=== PATIENT | male | born 1990 | race Caucasian/White ===

== ENCOUNTER 2017-01-13 05:24 | Inpatient (IN) | payer OTHER ==
[2017-01-12 10:08] VITALS: BMI 28.9
[2017-01-13] VITALS (51 sets, daily range): BP systolic 116–148; BP diastolic 61–100; PULSE 74–99; RESP 10–24; Ht 180.3 cm; Wt 89.3 kg
[~2017-01-13] VITALS: Ht 180.3 cm; Wt 89.3 kg
[2017-01-13] MEDS ORDERED: CEFAZOLIN 2 GM/50 ML (PMX) 50 ML IVPB ONE (06:00)
--- NOTE | 2017-01-13 06:46 | HPN ---
Date/Time of Note Date/Time of Note DATE: 01/13/17 TIME: 06:45 Interval H&P Admission Note Pt. seen H&P reviewed: No system changes SHAWN HOGAN MD Jan 13, 2017 06:46
[2017-01-13] MEDS ORDERED: ROCURONIUM 50 MG INJ ONE (06:52)
[2017-01-13] MEDS ORDERED: SUCCINYLCHOLINE CHLORIDE 100 MG/5 ML SYG IV ONE (06:52)
[2017-01-13] MEDS ORDERED: MIDAZOLAM 1 MG/ML 2 ML INJ ONE (06:52)
[2017-01-13] MEDS ORDERED: PROPOFOL 20 ML ONE (06:52)
[2017-01-13] MEDS ORDERED: LIDOCAINE 1% (MDV) 20 ML INJ ONE (06:52)
[2017-01-13] MEDS ORDERED: DEXAMETHASONE 4 MG/ML 1 ML INJ ONE (07:15)
[2017-01-13] MEDS ORDERED: ONDANSETRON 4 MG INJ ONE ×2 (07:15→09:01)
[2017-01-13] MEDS ORDERED: FAMOTIDINE 20 MG INJ ONE (07:15)
[2017-01-13] MEDS ORDERED: LABETALOL HCL 20MG INJ ONE (07:28)
[2017-01-13] MEDS ORDERED: BUPIVACAINE 0.25% (MPF) 10 ML 10 ML VIAL ONE (07:30)
[2017-01-13] MEDS ORDERED: POLYMYXIN/BACITRACIN 1L IRRIG ONE (07:30)
[2017-01-13] MEDS ORDERED: SUGAMMADEX SODIUM 200 MG/2 ML VIAL IV ONE (08:04)
[2017-01-13] MEDS ORDERED: HYDROmorphONE 0.2 MG/ML PCA ONE (08:44)
--- NOTE | 2017-01-13 08:44 | SIPON ---
Date/Time of Note Date/Time of Note DATE: 01/13/17 TIME: 08:36 Operative Report Preoperative Diagnosis Herniated disc L5-S1 on the right Postoperative Diagnosis Same Operation/Procedure Performed Right hemilaminotomy L5 Micro- discectomy L5-S1 on the right Medial facetectomy and foraminotomy L5-S1 on the right Cosmetic wound closure 2.6 cm Lateral localizing lumbar radiographs (2) Surgeon see signature line veterinary technician assistant Jasmin Alvares SHEET METAL SUPERVISOR Anesthesia: general Estimated blood loss: 10 - 50 ml's Transfusion Required none Specimen HNP L5-S1 right Grafts/Implants none Complications none SHAWN HOGAN MD Jan 13, 2017 08:44
[2017-01-13] MEDS ORDERED: DIAZEPAM 5 MG/ML SYG IM PRN (09:00)
[2017-01-13] MEDS ORDERED: DIAZEPAM 5 MG TAB PO PRN (09:00)
[2017-01-13] MEDS ORDERED: MEPERIDINE 25 MG INJ IV PRN (09:00)
[2017-01-13] MEDS ORDERED: ZOLPIDEM 5 MG TAB PO PRN (09:00)
[2017-01-13] MEDS ORDERED: ACETAMINOPHEN 325 MG TAB PO PRN (09:00)
[2017-01-13] MEDS ORDERED: TRIMETHOBENZAMIDE 100 MG/ML VIAL IM PRN (09:00)
[2017-01-13] MEDS ORDERED: AL HYDROX/MG HYDROX/SIMETH 30 ML CUP PO PRN (09:00)
[2017-01-13] MEDS ORDERED: ONDANSETRON 4 MG INJ IV PRN (09:00)
[2017-01-13] MEDS ORDERED: HYDROmorphONE (0.2 MG/ML) 10ML SYG IV PRN ×2 (09:00)
[2017-01-13] MEDS ORDERED: NACL 0.9% 3 ML SYG IV SCH (09:00)
[2017-01-13] MEDS ORDERED: DIPHENHYDRAMINE 50 MG INJ IV PRN (09:00)
[2017-01-13] MEDS ORDERED: BETHANECHOL 25 MG TAB PO PRN (09:00)
[2017-01-13] MEDS ORDERED: LORAZEPAM 2 MG INJ IV PRN (09:00)
[2017-01-13] MEDS ORDERED: PROCHLORPERAZINE 10 MG TAB PO PRN (09:00)
[2017-01-13] MEDS ORDERED: HYDROCODONE/APAP (5/325) TAB PO PRN (09:00)
[2017-01-13] MEDS ORDERED: DIPHENHYDRAMINE 50 MG CAP PO PRN (09:00)
[2017-01-13] MEDS ORDERED: NALOXONE (0.4 MG/ML) INJ IV PRN (09:00)
[2017-01-13] MEDS ORDERED: HYDROmorphONE (0.2 MG/ML) 10ML SYG IV ONE (09:01)
[2017-01-13] MEDS: ONDANSETRON 4 MG INJ IV PRN ×3 (09:08→16:05)
[2017-01-13] MEDS: HYDROmorphONE 0.2 MG/ML PCA IV SCH ×2 (09:13→17:41)
[2017-01-13] MEDS: CEFAZOLIN 1 GM/50 ML (PMX) 50 ML IVPB SCH ×3 (12:00→23:46)
--- NOTE | 2017-01-13 12:28 | RADRPT ---
PROCEDURE: XR Lumbar Spine. CLINICAL INDICATION: Lower back Pain. L5-S1 microdiskectomy TECHNIQUE: An AP view of the lumbar spine was obtained. COMPARISON: No prior studies are available for comparison. FINDINGS: Alignment is anatomic. No fracture or dislocation. Diffuse degenerative disk disease is noted. Po stsurgical changes are present. There are probes directed at the L4-5 and L5-S1 levels IMPRESSION: Intraoperative localization film. Anatomic alignment. RPTAT: QQ .Joslyn Gomez MD, MD Date Time Electronically viewed and signed by .Joslyn Gomez MD, MD on 01/13/2017 12:28 .F/
--- NOTE | 2017-01-13 12:40 | RADRPT ---
PROCEDURE: XR Lumbar Spine. CLINICAL INDICATION: Lower back Pain. L5-S1 microdiskectomy TECHNIQUE: An AP view of the lumbar spine was obtained. COMPARISON: Intraoperative localization film from the same day FINDINGS: Alignment is anatomic. No fracture or dislocation. Diffuse degenerative disk disease is noted. Po stsurgical changes are present. There are skin spreaders at the L5-S1 level IMPRESSION: Intraoperative localization film. Anatomic alignment. RPTAT: QQ .Joslyn Gomez MD, MD Date Time Electronically viewed and signed by .Joslyn Gomez MD, on 01/13/2017 12:40 .F/
--- NOTE | 2017-01-13 13:53 | OPR ---
DATE OF OPERATION: 01/13/2017 PREOPERATIVE DIAGNOSIS: Herniated disk, L5, S1, on the right. POSTOPERATIVE DIAGNOSIS: Herniated disk, L5, S1, on the right. OPERATION PERFORMED: 1. Right hemilaminotomy, L5. 2. Microdiskectomy, L5-S1, on the right. 3. Medial facetectomy foraminotomy, L5-S1, on the right. 4. Cosmetic wound closure (2.6 cm). 5. Lateral localized lumbar radiographs (2). 6. Intraoperative nerve monitoring (1 hour). SURGEON: Dr. Damian. VISUAL SPECIALIST: KAYLA Brown. ANESTHESIA: General endotracheal by Dr. Casas. ESTIMATED BLOOD LOSS: 15 cc-none replaced. DRAINS: Two medium Hemovac drains employed. COMPLICATIONS: No complications. PERTINENT HISTORY AND PHYSICAL: This is a 26-year-old male with persistent back and right leg pain, which has been unrelieved by conservative management following an injury to his back, which occurred in the course of his employment on May 07, 2016. He has had appropriate conservativecare since that time. He has remained symptomatic. He has undergone a number of diagnostic studies including an MRI of lumbar spine, which demonstrated herniation of the L5-S1 disk on the right. Treatment options were discussed with the patient. He elected to surgery. OPERATIVE FINDINGS AT SURGERY: A [id number] right paracentral herniation of the L5-S1 disk was confirmed. The baseline intraoperative nerve monitor revealed a decrease in the right S1 potential of 30 percent and the right L5 potential of 30 percent. These both returned to normal at the completion of the surgery. OPERATIVE PROCEDURE: With the patient in supine position, after satisfactory induction of general trach anesthesia by Dr. Casas, the patient was turned to the prone kneeling position onto the [place] frame. All pressure points carefully padded. The back was prepped and draped in usual sterile fashion. Athrombic pumps were applied to the legs below the knees and venous stasis during and after the procedure. Two spinal needles placed next to what was felt to be the L5 and S1 spinous processes, lateral roentgenogram was taken, which confirmed anatomical localization. A 2.6 cm incision was then carried out in the midline over the spinous process of L5 after the skin was infiltrated with 0.25 percent Marcaine without epinephrine for postoperative analgesia. Superficial retractors were placed and hemostasis secured with electrocautery. Throughout the procedure copious amounts of antibacterial irrigating solution used to periodically irrigate the wound. The fascia was incised in the midline with a hot knife and a unilateral subperiosteal dissection carried out at L5-S1 on the right. Deep retractors were placed and deep hemostasis secured with electrocautery. A 2nd intraoperative radiograph was taken where the deep tract was felt to be the L5-S1 disk space and this was confirmed with a 2nd x-ray. A right hemilaminotomy was then carried out using a Leksell rongeur, Kerrison punches and curettes. Ligamentum flavum was excised with sharp dissection. The operating microscope then moved into place. A medial facetectomy and foraminotomy were accomplished using small hand osteotome and mallet, Kerrison punches and curettes. The S1 root was then mobilized medially and protected with a D'Alice nerve root retractor using microdissection technique. This revealed a herniation of the L5-S1 disk on the right. A 15 blade knife used to cut a rectangular annular window in the annulus and posterior longitudinal ligament, and multiple degenerative disk fragments were harvested with a pituitary rongeur and sent to the laboratory for pathologic study. Additional fragments were harvested using Heriberto curettes. A thorough search of the floor of canal was made with an arthroscopic probe, and no additional fragments were encountered. The epidural hemostasis was secured with bipolar electrocautery on a low setting. The anesthesiologist asked to perform a Valsalva maneuver, 40 mmHg, no spinal fluid leakage was noted. The wound was then closed in layers over 2 medium Hemovac drains, one below the fascia, one above the fascia using #1 Vicryl [id number]-[id number] approximating suture in the deep parietal musculature and deep fascia of the back. 2-0 Vicryl subcutaneous approximating sutures in the subcu tissue and a 4-0 Vicryl subcuticular cosmetic closing suture on the skin. Dermabond and sterile compressive dressings were applied. The patient having tolerated procedure well was then turned in the supine position onto his bed and extubated by Dr. Casas. He was transported to recovery room in satisfactory condition. At the conclusion of procedure, sponge, instrument, needle counts were all correct. My grants and contracts assistant was required to retract nerves, suction blood, and assist in the exposure of the neural elements. These tasks can only be performed by licensed personnel in accordance with hospital bylaws and [place] law. Throughout the procedure, neuromonitoring was carried out by [employer] including EMG, SSEP and MEP monitoring of the L3, L4, L5 and S1 nerve roots bilaterally along with spinal cord potentials. These were interpreted by a neurologist employed by [employer]. Dictated By: Juan Ramon Damian MD /evangelista/montse /Document#: [id number] CC: DO DAFNE Silvestre
[2017-01-13] MEDS: DEXTROSE 5%-0.45% NACL 1,000 ML IV SCH ×2 (15:27→18:33)
[2017-01-13] MEDS: CEPASTAT LOZENGE MT PRN ×2 (15:27→21:53)
--- NOTE | 2017-01-13 17:54 | PN ---
Date/Time of Note Date/Time of Note DATE: 01/13/17 TIME: 17:42 Assessment/Plan VTE Prophylaxis VTE Prophylaxis Intervention: ambulation, SCD's Lines/Catheters IV Catheter Type (from Nrsg): Peripheral IV Urinary Cath still in place: No Assessment/Plan Chief Complaint/Hosp Course S/p L5-S1 microdiscectomy Problems: Assessment/Plan - continue pain management - continue PT - hemovac removal as per surgery - surgery will follow up for post op care Subjective 24 Hr Interval Summary Free Text/Dictation Medical team was requested by Dr. Damian for this 26 y/o pleasant male with no significant past medical history, who is s/p L5-S1 microdiscectomy earlier this morning. He is resting in be comfortably. Has no complaints. Notes 0/10 pain at rest, and up to a 5/10 pain with movement. He is able to urinate freely. Hemovac shows no active blood drainage with empty reservoir. PT has been by twice and the patient was able to get up with assistance. He notes nausea and episode of bilious vomiting earlier today. He denies abdominal pain. He does note mild dizziness when he was upright. He denies headache, vision or hearing changes. No reported BMs yet. Constitutional: improved, no complaints Eyes: no complaints ENT: no complaints Respiratory: no complaints Cardiovascular: no complaints Gastrointestinal: no complaints Genitourinary: no complaints Musculoskeletal: no complaints Skin: no complaints Neurologic: no complaints Endocrine: no complaints Lymphatic: no complaints Psychological: nl mood/affect, no complaints Immunologic: no complaints Exam/Review of Systems Vital Signs Vitals Vital Signs Date Time Temp Pulse Resp B/P Pulse Ox O2 Delivery O2 Flow Rate FiO2 01/13/17 15:58 98.2 84 16 128/75 98 Room Air 01/13/17 08:59 10.0 Exam Constitutional: alert, oriented, well developed Psych: nl mood/affect, no complaints Head: atraumatic, normocephalic Eyes: EOMI, PERRL, nl conjunctiva, nl lids, nl sclera ENMT: nl external ears & nose, nl lips & teeth, nl nasal mucosa & septum Neck: non-tender, supple Respiratory: clear to auscultation, normal air movement Cardiovascular: nl pulses, regular rate and rhythm Gastrointestinal: nl liver, spleen, non-tender, soft Musculoskeletal: nl extremities to inspection, other (mild hypoesthesia in the right foot.), No muscle weakness Extremities: normal pulses Neurological: BEEF PLUCK TRIMMER II-XII intact, nl mental status, nl speech, nl strength Skin: nl turgor, No rash or lesions Lymph: nl lymph nodes Medications Medications Current Medications Dextrose/Sodium Chloride (D5-1/2ns) 1,000 ml @ 100 mls/hr Q10H IV Last administered on 01/13/17 15:27; Admin Dose 100 MLS/HR; Start 01/13/17 at 08:33 Acetaminophen/ Hydrocodone Bitart ([place] (5/325)) 1 tab Q4H PRN PO PAIN LEVEL 1 -5; Start 01/13/17 at 09:00 Acetaminophen/ Hydrocodone Bitart 2 tab 2 tab Q4H PRN PO PAIN LEVEL 6-10; Start 01/13/17 at 09:00 Cefazolin Sodium (Ancef 1 Gm/50 ml (Pmx)) 50 ml @ 100 mls/hr Q6 IVPB ; Start at 12:00; Stop 01/14/17 at 06:29 Zolpidem Tartrate (Ambien) 5 mg HS PRN PO INSOMNIA; Start 01/13/17 at 09:00 Prochlorperazine (Compazine) 10 mg Q4H PRN PO NAUSEA AND/OR VOMITING; Start at 09:00 Trimethobenzamide HCl (Tigan) 200 mg Q4H PRN IM NAUSEA AND/OR VOMITING; Start 01/13/17 at 09:00 Ondansetron HCl (Zofran Inj) 4 mg Q6H PRN IV NAUSEA AND/OR VOMITING Last administered on 01/13/17 16:05; Admin Dose 4 MG; Start 01/13/17 at 09:00 Al Hydrox/Mg Hydrox/Simethicone (Mag-Al Plus) 15 ml Q4H PRN PO CONSTIPATION; Start 01/13/17 at 09:00 Docusate Sodium (Colace) 100 mg BID PO ; Start 01/14/17 at 09:00 Acetaminophen (Tylenol Tab) 650 mg Q4H PRN PO TEMP GREATER THAN 101F OR FIGUEROA; Start 01/13/17 at 09:00 Ascorbic Acid (Vitamin C) 1,000 mg BID PO ; Start 01/14/17 at 09:00 Ferrous Sulfate (Ferrous Sulfate (Ec)) 325 mg TID PO ; Start 01/14/17 at 09:00 Ranitidine HCl (Zantac) 150 mg BID PO ; Start 01/13/17 at 21:00 Diazepam (Valium) 5 mg Q4H PRN PO MUSCLE SPASMS; Start 01/13/17 at 09:00 Diazepam (Valium) 5 mg Q4H PRN IM MUSCLE SPASMS; Start 01/13/17 at 09:00 Phenol (Cepastat Lozenge) 1 lozenge PRN PRN MT SORE THROAT Last administered on 01/13/17 15:27; Admin Dose 1 LOZENGE; Start 01/13/17 at 09:00 Bethanechol Chloride (Urecholine) 25 mg PRN PRN PO UNABLE TO VOID; Start at 09:00 Diphenhydramine HCl (Benadryl) 50 mg Q6H PRN PO PRURITUS; Start 01/13/17 at 09: 00 Hydromorphone HCl (Dilaudid SALES REPRESENTATIVE GRAPHIC ART) Q4PCA IV Last administered on 01/13/17 17:41 ; Admin Dose 6 MG; Start 01/13/17 at 09:00 Naloxone HCl (Narcan) 0.2 mg Q2M PRN IV RR 8 BREATHS/MIN OR LESS; Start at 09:00 RISSA HENSLEY Jan 13, 2017 17:53
[2017-01-13] MEDS: RANITIDINE 150 MG TAB PO SCH (21:53)
[2017-01-14 00:01] VITALS: BP 112/80; PULSE 80; RESP 17
[2017-01-14 02:00] VITALS: BP 112/56; RESP 18
[2017-01-14] MEDS: DEXTROSE 5%-0.45% NACL 1,000 ML IV SCH ×2 (03:08→14:33)
[2017-01-14] MEDS: HYDROmorphONE 0.2 MG/ML PCA IV SCH (04:57)
[2017-01-14 05:10] LABS: HEMATOCRIT 38.6 % (42.0-52.0); HEMOGLOBIN 13.1 g/dl (14.0-18.0)
[2017-01-14] MEDS: CEFAZOLIN 1 GM/50 ML (PMX) 50 ML IVPB SCH (06:06)
[2017-01-14 06:10] LABS: CREATININE 0.85 mg/dl (0.61-1.24); POTASSIUM 4.2 mmol/L (3.5-5.1)
--- NOTE | 2017-01-14 07:15 | PN ---
Date/Time of Note Date/Time of Note DATE: 01/14/17 TIME: 07:11 Assessment/Plan Lines/Catheters IV Catheter Type (from Nrsg): Peripheral IV Roland in Place (from Nrsg): No Subjective 24 Hr Interval Summary Patient is POD #1 from lumbar microdiscectomy L5-S1. He is doing well and has been ambulatory with PT. Neurovascular structures are intact distally. Vital signs are stable. Hemoglobin this morning is 13.1. Hemovac drain overnight was 60 cc, this will be monitored during the day. 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 Exam/Review of Systems Vital Signs Vitals Vital Signs Date Time Temp Pulse Resp B/P Pulse Ox O2 Delivery O2 Flow Rate FiO2 01/14/17 05:01 18 01/14/17 02:00 98.5 82 112/56 98 01/14/17 00:01 Room Air 01/13/17 08:59 10.0 Intake and Output 01/13/17 01/13/17 01/14/17 15:00 23:00 07:00 Intake Total 1000 ml 820 ml 1750 ml Output Total 20 ml 800 ml 1660 ml Balance 980 ml 20 ml 90 ml Results Result Diagram: 01/14/17 0440 01/14/17 0440 BAO SILVA Jan 14, 2017 07:15
[2017-01-14 07:53] VITALS: BP 136/61; RESP 19
[2017-01-14] MEDS ORDERED: BETHANECHOL 25 MG TAB PO PRN (08:00)
[2017-01-14] MEDS ORDERED: DOCUSATE SODIUM 100 MG CAP PO SCH (09:00)
[2017-01-14] MEDS ORDERED: ASCORBIC ACID 500 MG TAB PO SCH (09:00)
[2017-01-14] MEDS: RANITIDINE 150 MG TAB PO SCH (09:26)
[2017-01-14] MEDS: HYDROCODONE/APAP (5/325) TAB PO PRN ×2 (09:27→13:28)
[2017-01-14] MEDS: FERROUS SULFATE (EC) 325 MG TAB PO SCH ×2 (09:27→13:28)
== END 2017-01-14 17:30 | disposition home or self-care (01) | DRG 520 ==
LOC: REC 05:24 → EDSTATUS 07:00 → MS1 15:04
PROVIDERS: ADMIT Orthopaedic Surgery; ATTEND Orthopaedic Surgery
PROC: 0QN00ZZ Release Lumbar Vertebra, Open Approach (ICD-10-PCS; 2017-01-13)
PROC: 0SB40ZZ Excision of Lumbosacral Disc, Open Approach (ICD-10-PCS; principal; 2017-01-13 07:00)
DX: M51.27 Other intervertebral disc displacement, lumbosacral region (principal)
CPT/HCPCS: 72020; 80048; 85014; 85018; 86850; 86900; 86901; 86920; 97116; 97162; 97530; J0690; J1100; J1170; J2250; J2405; J3010; J7042; J7999

== ENCOUNTER 2018-01-08 12:38 | Emergency (ER) | END 2018-01-08 16:19 | disposition home or self-care (01) ==